=== PATIENT | female | born 1995 | race Hispanic/Latino ===

== ENCOUNTER 2018-02-03 09:19 | Emergency (ER) | payer SELFPAY ==
[2018-02-03 09:36] VITALS: BP 134/83
--- NOTE | 2018-02-03 10:22 | Emergency Department Report ---
Blank Doc - Documentation Documentation: Patient presents to the emergency department with a chief complaint of right flank pain that started this morning. Patient states the pain radiates into her groin and is intermittent in nature. Patient states that she has a family history of kidney stones and she was told by family members this is very consistent with it. Patient also complains of some nausea but denies any vomiting. Patient also denies fever. Care will be turned over to the mid- level Provider with me available for consultation
[2018-02-03] MEDS ORDERED: MORPHINE IV ONE (10:29)
[2018-02-03] MEDS ORDERED: ZOFRAN IV ONE (10:29)
[2018-02-03 10:49] LABS: Bacteria,Urine 2+ /HPF (Negative); Bilirubin,Urine NEG (Negative); Blood,Urine LG (Negative); Color,Urine Yellow (Yellow); Mucus,Urine 3+ /HPF; Urobilinogen,Urine < 2.0 mg/dL (<2.0)
[2018-02-03 10:50] LABS: HCG Qualitative,Urine Negative (Negative)
[2018-02-03 10:51] LABS: RBC,Urine > 182.0 /HPF (0.0-6.0)
[2018-02-03 11:05] LABS: Basophils % (Auto) 0.3 % (0.0-1.8); Eosinophils % (Auto) 0.2 % (0.0-4.3); Hematocrit 38.5 % (30.3-42.9); Lymphocytes # (Auto) 1.4 K/mm3 (1.2-5.4); Lymphocytes % (Auto) 9.4 % (13.4-35.0); Mean Corpuscular HGB Conc 34 % (30-34); Mean Corpuscular Hemoglobin 31 pg (28-32); Mean Corpuscular Volume 93 fl (79-97); Monocytes # (Auto) 0.6 K/mm3 (0.0-0.8); Monocytes % (Auto) 4.2 % (0.0-7.3); Platelet Count 289 K/mm3 (140-440); Red Blood Count 4.16 M/mm3 (3.65-5.03); Red Cell Distribution Width 12.6 % (13.2-15.2)
[2018-02-03 11:22] LABS: Albumin 4.3 g/dL (3.9-5); BUN/Creatinine Ratio 13; Blood Urea Nitrogen 10 mg/dL (7-17); Calcium 9.2 mg/dL (8.4-10.2); Hemolysis Index 129
--- NOTE | 2018-02-03 11:31 | Cat Scan Report ---
CT ABDOMEN PELVIS WITHOUT CONTRAST: HISTORY: Flank pain. COMPARISON: none. TECHNIQUE: Helical CT in 1.25mm intervals without IV contrast. Sagittal and coronal reconstructions. FINDINGS: Lung bases: Normal. Liver: Normal. Biliary system: Normal. Pancreas: Normal. Spleen: Normal. Kidneys/ureters/bladder: 3 mm distal right ureteral stone is identified resulting in mild right hydronephrosis. 2 or 3 punctate calyceal stones are also identified in both kidneys. The bladder is collapsed but grossly normal. Adrenal glands: Normal. Aorta: Normal. Intestines: Within normal limits given no oral contrast was administered. Appendix: Normal. Pelvic viscera: Normal. Ascites: None. Adenopathy: None. Musculoskeletal: Normal. IMPRESSION: 3 mm distal right ureteral stone, mildly obstructing. Bilateral punctate renal calyceal stones.
[2018-02-03 11:38] LABS: Alanine Aminotransferase 14 units/L (7-56)
--- NOTE | 2018-02-03 11:55 | Emergency Department Report ---
ED Abdominal Pain HPI - General Chief Complaint: Abdominal Pain Stated Complaint: LOWER BACK PAIN/CANT URINATE Time Seen by Provider: 02/03/18 09:57 Source: patient, family Mode of arrival: Ambulatory Limitations: No Limitations - History of Present Illness Initial Comments: Patient presents to the emergency department with a chief complaint of right flank pain that started this morning. Patient states the pain radiates into her groin and is intermittent in nature. Patient states that she has a family history of kidney stones and she was told by family members this is very consistent with it. Patient also complains of some nausea but denies any vomiting. Patient also denies fever. Pain is 8/10 and feels colicky located right flank radiating around right abdomen. No medication taken for pain. Urinary burning without any blood in her urine. MD Complaint: flank pain -: This morning Location: R flank Radiation: none Migration to: no migration Severity: severe Severity scale (0 -10): 10 Quality: other (colicky) Consistency: constant Improves With: nothing Worsens With: nothing Context: other (unknown) Associated Symptoms: nausea, dysuria. denies: vomiting, diarrhea, fever, hematemesis, hematochezia, melena, hematuria, anorexia, syncope Treatments Prior to Arrival: other (none) - Related Data LMP Date: 01/10/18 Previous Rx's Medication Instructions Recorded Last Taken Type HYDROcodone/ACETAMINOPHEN [Timnath 1 each PO Q6H PRN #12 tablet 02/03/18 Unknown Rx 5-325 Tablet] Ondansetron [Zofran Odt] 4 mg PO Q6H PRN #20 tab.rapdis 02/03/18 Unknown Rx Sulfamethoxazole/Trimethoprim 1 each PO BID 10 Days #20 tablet 02/03/18 Unknown Rx [Bactrim DS TAB] Sulfamethoxazole/Trimethoprim 1 each PO BID 9 Days #19 tablet 02/03/18 Unknown Rx [Bactrim DS TAB] Allergies Allergy/AdvReac Type Severity Reaction Status Date / Time No Known Allergies Allergy Verified 02/03/18 12:06 ED Review of Systems ROS: Stated complaint: LOWER BACK PAIN/CANT URINATE Other details as noted in HPI Constitutional: denies: chills, fever Eyes: denies: eye pain, eye discharge ENT: denies: ear pain, throat pain, congestion Respiratory: denies: cough, shortness of breath, SOB with exertion, SOB at rest , stridor, wheezing Cardiovascular: denies: chest pain, palpitations, edema, syncope Gastrointestinal: denies: abdominal pain, nausea, vomiting, diarrhea, constipation, hematemesis, hematochezia Genitourinary: dysuria. denies: urgency, frequency, discharge, abnormal menses , dyspareunia Musculoskeletal: denies: back pain, joint swelling, arthralgia Skin: denies: rash, lesions Neurological: denies: headache, weakness, paresthesias, abnormal gait, vertigo ED Past Medical Hx - Past Medical History Previous Medical History?: No - Surgical History Past Surgical History?: No - Family History Family history: hypertension - Social History Smoking Status: Never Smoker Substance Use Type: None - Medications Home Medications: Home Medications Medication Instructions Recorded Confirmed Last Taken Type HYDROcodone/ACETAMINOPHEN [Timnath 1 each PO Q6H PRN #12 tablet 02/03/18 Unknown Rx 5-325 Tablet] Ondansetron [Zofran Odt] 4 mg PO Q6H PRN #20 tab.rapdis 02/03/18 Unknown Rx Sulfamethoxazole/Trimethoprim 1 each PO BID 10 Days #20 tablet 02/03/18 Unknown Rx [Bactrim DS TAB] Sulfamethoxazole/Trimethoprim 1 each PO BID 9 Days #19 tablet 02/03/18 Unknown Rx [Bactrim DS TAB] ED Physical Exam - General Limitations: No Limitations General appearance: alert, in no apparent distress - Head Head exam: Present: atraumatic, normocephalic, normal inspection - Eye Eye exam: Present: normal appearance, PERRL, EOMI Pupils: Present: normal accommodation - ENT ENT exam: Present: normal exam, normal orophraynx, mucous membranes moist, TM's normal bilaterally, normal external ear exam - Neck Neck exam: Present: normal inspection, full ROM. Absent: tenderness, lymphadenopathy - Respiratory Respiratory exam: Present: normal lung sounds bilaterally. Absent: respiratory distress, chest wall tenderness - Cardiovascular Cardiovascular Exam: Present: regular rate, normal rhythm, normal heart sounds. Absent: systolic murmur, diastolic murmur - GI/Abdominal GI/Abdominal exam: Present: soft, normal bowel sounds. Absent: distended, tenderness, guarding, rebound, rigid, organomegaly, mass - Extremities Exam Extremities exam: Present: normal inspection, full ROM, normal capillary refill , other. Absent: tenderness, pedal edema, joint swelling, calf tenderness - Back Exam Back exam: Present: normal inspection, full ROM, CVA tenderness (R), other ( ambulates without difficulties). Absent: tenderness, CVA tenderness (L), muscle spasm, paraspinal tenderness, vertebral tenderness, rash noted - Neurological Exam Neurological exam: Present: alert, oriented X3, normal gait - Psychiatric Psychiatric exam: Present: normal affect, normal mood - Skin Skin exam: Present: warm, dry, intact, normal color. Absent: rash ED Course Vital Signs 02/03/18 02/03/18 09:32 10:53 Temperature 98.4 F Pulse Rate 87 Respiratory 18 16 Rate Blood Pressure 134/83 O2 Sat by Pulse 100 Oximetry - Reevaluation(s) Reevaluation #1: 02/03/18 13:02 Patient given morphine 2 mg IV, Zofran 4 mg IV and 1 L of normal saline. She was also given Toradol 30 mg IV which relieved her pain. Patient without any nausea ED Medical Decision Making - Lab Data Result diagrams: 02/03/18 10:49 02/03/18 10:49 Lab Results 02/03/18 02/03/18 02/03/18 Range/Units 10:24 10:24 10:49 WBC 15.0 H (4.5-11.0) K/mm3 RBC 4.16 (3.65-5.03) M/mm3 Hgb 13.0 (10.1-14.3) gm/dl Hct 38.5 (30.3-42.9) % MCV 93 (79-97) fl MCH 31 (28-32) pg MCHC 34 (30-34) % RDW 12.6 L (13.2-15.2) % Plt Count 289 (140-440) K/mm3 Lymph % (Auto) 9.4 L (13.4-35.0) % [place] % (Auto) 4.2 (0.0-7.3) % Eos % (Auto) 0.2 (0.0-4.3) % Baso % (Auto) 0.3 (0.0-1.8) % Lymph # 1.4 (1.2-5.4) K/mm3 [place] # 0.6 (0.0-0.8) K/mm3 Eos # 0.0 (0.0-0.4) K/mm3 Baso # 0.0 (0.0-0.1) K/mm3 Seg Neutrophils % 85.9 H (40.0-70.0) % Seg Neutrophils # 12.9 H (1.8-7.7) K/mm3 Sodium (137-145) mmol/L Potassium (3.6-5.0) mmol/L Chloride (98-107) mmol/L Carbon Dioxide (22-30) mmol/L Anion Gap mmol/L BUN (7-17) mg/dL Creatinine (0.7-1.2) mg/dL Estimated GFR ml/min BUN/Creatinine Ratio % Glucose (65-100) mg/dL Calcium (8.4-10.2) mg/dL Total Bilirubin (0.1-1.2) mg/dL AST (5-40) units/L ALT (7-56) units/L Alkaline Phosphatase (35-129) units/L Total Protein (6.3-8.2) g/dL Albumin (3.9-5) g/dL Albumin/Globulin Ratio % Urine Color Yellow (Yellow) Urine Turbidity Cloudy (Clear) Urine pH 5.0 (5.0-7.0) Ur Specific [place] 1.021 (1.003-1.030) Urine Protein 100 mg/dl (Negative) mg/dL Urine Glucose (UA) Neg (Negative) mg/dL Urine Ketones Neg (Negative) mg/dL Urine Blood Lg (Negative) Urine Nitrite Neg (Negative) Urine Bilirubin Neg (Negative) Urine Urobilinogen < 2.0 (<2.0) mg/dL Ur Leukocyte Esterase Mod (Negative) Urine WBC (Auto) 42.0 H (0.0-6.0) /HPF Urine RBC (Auto) > 182.0 (0.0-6.0) /HPF U Epithel Cells (Auto) 52.0 H (0-13.0) /HPF Urine Bacteria (Auto) 2+ (Negative) /HPF Urine Mucus 3+ /HPF Urine Yeast (Budding) 2+ /HPF Urine HCG, Qual Negative (Negative) 02/03/18 Range/Units 10:49 WBC (4.5-11.0) K/mm3 RBC (3.65-5.03) M/mm3 Hgb (10.1-14.3) gm/dl Hct (30.3-42.9) % MCV (79-97) fl MCH (28-32) pg MCHC (30-34) % RDW (13.2-15.2) % Plt Count (140-440) K/mm3 Lymph % (Auto) (13.4-35.0) % [place] % (Auto) (0.0-7.3) % Eos % (Auto) (0.0-4.3) % Baso % (Auto) (0.0-1.8) % Lymph # (1.2-5.4) K/mm3 [place] # (0.0-0.8) K/mm3 Eos # (0.0-0.4) K/mm3 Baso # (0.0-0.1) K/mm3 Seg Neutrophils % (40.0-70.0) % Seg Neutrophils # (1.8-7.7) K/mm3 Sodium 136 L (137-145) mmol/L Potassium 4.2 (3.6-5.0) mmol/L Chloride 103.7 (98-107) mmol/L Carbon Dioxide 20 L (22-30) mmol/L Anion Gap 17 mmol/L BUN 10 (7-17) mg/dL Creatinine 0.8 (0.7-1.2) mg/dL Estimated GFR > 60 ml/min BUN/Creatinine Ratio 13 % Glucose 120 H (65-100) mg/dL Calcium 9.2 (8.4-10.2) mg/dL Total Bilirubin 0.20 (0.1-1.2) mg/dL AST 25 (5-40) units/L ALT 14 (7-56) units/L Alkaline Phosphatase 64 (35-129) units/L Total Protein 7.4 (6.3-8.2) g/dL Albumin 4.3 (3.9-5) g/dL Albumin/Globulin Ratio 1.4 % Urine Color (Yellow) Urine Turbidity (Clear) Urine pH (5.0-7.0) Ur Specific [place] (1.003-1.030) Urine Protein (Negative) mg/dL Urine Glucose (UA) (Negative) mg/dL Urine Ketones (Negative) mg/dL Urine Blood (Negative) Urine Nitrite (Negative) Urine Bilirubin (Negative) Urine Urobilinogen (<2.0) mg/dL Ur Leukocyte Esterase (Negative) Urine WBC (Auto) (0.0-6.0) /HPF Urine RBC (Auto) (0.0-6.0) /HPF U Epithel Cells (Auto) (0-13.0) /HPF Urine Bacteria (Auto) (Negative) /HPF Urine Mucus /HPF Urine Yeast (Budding) /HPF Urine HCG, Qual (Negative) Urine culture sent - Radiology Data Radiology results: report reviewed CT scan of the abdomen and pelvis without contrast dictated by radiologist and report reviewed by myself. See details below Findings [facility] [address] [place] [address] Cat Scan Report Signed Patient: MEDARDO LEWIS MR#: [id number] : 1995 Acct:[id number] Age/Sex: 22 / F ADM Date: 02/03/18 Loc: ED Attending Dr: Ordering Physician: YASMIN NAZARIO MD Date of Service: 02/03/18 Procedure(s): CT abdomen pelvis wo con Accession Number(s): [id number] cc: YASMIN NAZARIO MD CT ABDOMEN PELVIS WITHOUT CONTRAST: HISTORY: Flank pain. COMPARISON: none. TECHNIQUE: Helical CT in 1.25mm intervals without IV contrast. Sagittal and coronal reconstructions. FINDINGS: Lung bases: Normal. Liver: Normal. Biliary system: Normal. Pancreas: Normal. Spleen: Normal. Kidneys/ureters/bladder: 3 mm distal right ureteral stone is identified resulting in mild right hydronephrosis. 2 or 3 punctate calyceal stones are also identified in both kidneys. The bladder is collapsed but grossly normal. Adrenal glands: Normal. Aorta: Normal. Intestines: Within normal limits given no oral contrast was administered. Appendix: Normal. Pelvic viscera: Normal. Ascites: None. Adenopathy: None. Musculoskeletal: Normal. IMPRESSION: 3 mm distal right ureteral stone, mildly obstructing. Bilateral punctate renal calyceal stones. Transcribed By: TTR Dictated By: DEX GAFFNEY JR, MD Electronically Authenticated By: DEX GAFFNEY JR, MD Signed Date/Time: 02/03/18 1130 DD/ 1128 TD/TT: 02/03/18 1130 - Medical Decision Making This is a 22-year-old female here report that she is having dysuria and right flank pain. She is also complaining of abdominal pain does radiated from her right flank and nausea. She said this started this morning. Diagnostics: Patient had CT scan of abdomen and pelvis without contrast which shows left urethral stone with mild hydronephrosis and bilateral renal stone. Please see procedure note for details and CT report. Labs: CBC, CMP stable except CBC with white count of 15 with positive shift to the left, urinalysis with positive blood, positive leukocyte Estrace, positive white blood cell, positive bacteria and budding yeast. test is negative Assessment/plan Bilateral kidney stone-referral to urology left urethral stone with mild hydronephrosis -patient given normal saline 1 L in the emergency room. Referral to urology Flank pain radiating into her abdomen-better with morphine 2 mg IV and was sent home on Timnath. nausea without vomiting-better with Zofran IV and will sent home and Zofran Acute cystitis with hematuria-we will discharge home on Bactrim DS which will cover pyelo and patient to refer to primary care doctor which she does have 1 in 7 days. Urinalysis and follow-up with urology in 2 days. Patient started on her first dose of Bactrim and ED today and will take second dose later on today. Urine culture sent Assessment patient her diagnosis, treatment plan and need to follow up with specialist. I also discussed with her medication and that she will need to take medication as prescribed. Information given on kidney stones and urinary tract infection. I told her she is to drink at least 3 L of water to flush her kidney out and get the stone out. She voiced understanding patient vital signs are stable she is afebrile and discharged home with prescription for Timnath, Bactrim and Zofran ODT. Critical care attestation.: If time is entered above; I have spent that time in minutes in the direct care of this critically ill patient, excluding procedure time. ED Disposition Clinical Impression: Kidney stones, Ureteral calculus, left, Acute flank pain, Nausea alone, Acute cystitis with hematuria Disposition: DC-01 TO HOME OR SELFCARE Is pt being admited?: No Does the pt Need Aspirin: No Condition: Stable Instructions: Abdominal Pain (ED), Dysuria (ED), Urinary Tract Infection in Women (ED), Flank Pain (ED), Renal Colic (ED), Kidney Stones (ED), How to Strain Your Urine (ED), Acute Nausea and Vomiting (ED) Additional Instructions: Follow-up with urologist in 2 days and a few symptoms return return to [facility] Take Timnath for pain but please do not drive or operate heavy machinery while taking this medication as it causes drowsiness and please take [id number] stool softener to prevent constipation Least 1 gallon of water today and this will help to flush kidney out a few or urethra and help with pain. Take Bactrim DS at 8 PM tonight and start taking tomorrow twice daily. He received her first dose in the emergency room Follow-up the primary care physician in 2 days. Referrals: PRIMARY CAREMD [Primary Care Provider] - 2-3 Days [facility] [Provider [facility]] - 02/05/18 Forms: Work/School Release Form(ED), Accompanied Note
[2018-02-03] MEDS ORDERED: NACL 0.9% 1000 ML 1,000 ML IV ONE (11:56)
[2018-02-03] MEDS ORDERED: TORADOL IV ONE (11:59)
[2018-02-03] MEDS ORDERED: TORADOL ONE (12:02)
[2018-02-03] MEDS ORDERED: BACTRIM DS PO ONE (13:19)
== END 2018-02-03 13:50 | disposition home or self-care (01) ==
LOC: ED 09:19
DX: N30.01 Acute cystitis with hematuria (principal); N20.1 Calculus of ureter; Z87.442 Personal history of urinary calculi
CPT/HCPCS: 36415; 74176; 80053; 81001; 81025; 85025; 87086; 96374; 96375; 99284; J1885; J2270; J2405; J7030